=== PATIENT | male | born 1950 ===

== ENCOUNTER 2020-12-08 08:05 | Emergency (ER) | payer MEDICARE, SELFPAY ==
[2020-12-08 08:09] VITALS: BP 164/85; PULSE 64; RESP 16; TEMP 36.6; O2SAT 98; BMI 24.3
--- NOTE | 2020-12-08 08:36 | ED.EXTPRO ---
HPI - Extremity Problem General Chief complaint: Extremity Injury, Upper Stated complaint: elbow swelling Time Seen by Provider: 12/08/20 08:19 Source: patient Mode of arrival: ambulatory History of Present Illness HPI Narrative: 70-year-old male with a past medical history of hypertension presenting to the ED complaining of left elbow swelling times years. Reports area becoming increasingly painful recently, denies known injury/trauma or falls. Denies fever, chills, decreased ROM, numbness, tingling MD Complaint: extremity pain and extremity swelling Related Data Previous Rx's Medication Instructions Recorded acetaminophen [Tylenol Extra 500 mg PO Q6H PRN #20 tab 12/08/20 Strength] naproxen 500 mg PO BID PRN 10 Days #20 tab 12/08/20 Allergies Allergy/AdvReac Type Severity Reaction Status Date / Time No Known Allergies Allergy Mild NOT Unverified 04/30/20 17:21 APPLICABLE doxycycline Allergy Unknown nausea Verified 10/12/15 00:00 Review of Systems Review of Systems: Constitutional: No Fever, No Chills Musculoskeletal: + joint pain, No Myalgias, + Joint Swelling Neuro: No Weakness, No Numbness, No Paresthesias Yes all other systems are reviewed and are negative [facility] Past Medical History Attestation statement: The following information was validated with the patient. Medical History (Updated 12/08/20 @ 08:36 by JAYLON Sarabia) HTN (hypertension) Social History Social History Advance Directives: No Advance Directives Information Provided: No Physical Exam Vital Signs: Vital Signs: Last Vital Signs Temp 97.8 F 12/08/20 08:09 Pulse 64 12/08/20 08:09 Resp 16 12/08/20 08:09 BP 164/85 H 12/08/20 08:09 Pulse Ox 98 12/08/20 08:09 Body Mass Index 24.3 Const: General: cooperative and healthy appearing Orientation/consciousness: patient oriented x3 Limitations: no limitations HENMT: Head: Yes normal to inspection Ears: hearing grossly normal bilaterally General nose exam: Normal external nose present Face and sinus: Yes normal facial exam Eyes: General: appearance normal, both eyes and all related structures EOM: EOMs intact bilaterally Neck: Neck: Yes normal visual inspection Resp: Effort & Inspection: normal respiratory effort Cardio: Rhythm: regular rhythm Peripheral pulses: radial pulses present Skin: Rashes: no rashes Wounds: no wounds Neuro: General: patient oriented x3 Gait exam (Neuro): Normal gait present Extrem: Other: Left elbow with notable bursitis, no overlying erythema/cellulitis/abrasions or ecchymosis. Neurovascularly intact distally. FROM MDM - Extremity (Nontraumatic) MDM Narrative Medical decision making narrative: On exam VSS, NAD/well-appearing, exam consistent with non infected bursitis Discharge Plan Discharge Clinical Impression: Bursitis of elbow Qualifiers: Elbow bursitis location: olecranon bursitis Laterality: left Qualified Code(s): M70.22 - Olecranon bursitis, left elbow Patient Disposition: Home, Self-Care Instructions: Elbow Bursitis (ED) Additional Instructions: You have elbow bursitis, wear Christian wrap at home for elbow protection/debility/compression, you may take off to shower/sleep Naproxen as an anti-inflammatory/pain medication, take with food In addition take Tylenol If her elbow begins look infected, is red, there is pus drainage return to the ED immediately You need to follow-up with an orthopedic doctor, they may drain the fluid from her elbow Prescriptions: New naproxen 500 mg tablet 500 mg PO BID PRN (Reason: pain) 10 Days Qty: 20 RF: 0 acetaminophen [Tylenol Extra Strength] 500 mg tablet 500 mg PO Q6H PRN (Reason: pain or fever) Qty: 20 RF: 0 Referrals: Chata Mcnamara PA-C [Physician Studio Engineer] - 3 days
== END 2020-12-08 08:51 | disposition home or self-care (01) ==
PROVIDERS: Emergency Provider Emergency Medicine; PCP Nurse Practitioner Family
DX: M70.22 Olecranon bursitis, left elbow (principal); I10 Essential (primary) hypertension
CPT/HCPCS: 99283

== ENCOUNTER → 2021-06-01 08:44 | Outpatient (REF) | payer MEDICARE, SELFPAY ==
--- NOTE | ~2021-06-01 | NM_ITS ---
Exercise Myocardial perfusion study Indication: Chest pain to evaluate for myocardial ischemia Technique: The patient was brought in for an exercise perfusion study on 06/01/2021. Patient performed exercise as per Yair protocol and was injected 25 mCi of sestamibi was given intravenously one target HR was achieved. Images were obtained using the SPECT gamma camera interlaced with the gating device. Images were obtained in supine position. Resting perfusion study was performed on 06/02/2021. Patient was administered 25 mCi of sestamibi intravenously at rest. Images were then obtained in supine position. Images obtained with and without CT attenuation. Total DLP 84 mGy-cm. Images were processed with the software and compared side to side in short axis, horizontal long axis and vertical long axis views. Findings: The stress perfusion study showed nonattenuated images show mildly reduced uptake in the basal and mid inferior wall of the LV myocardium. Remainder of the LV myocardium is normally perfused attenuation corrected images show mildly reduced uptake in the apex of the LV myocardium. The gated study shows reduced LV systolic function with calculated LVEF of 47%. LV cavity is mildly to moderately dilated in size. The gated study shows diffusely reduced wall thickening and contraction of all segments. There is no transient ischemic dilation. Resting study shows no change in perfusion pattern on nonattenuated study. Attenuation corrected images show mildly reduced uptake in the distal anterior and moderately reduced uptake in the apex of the LV myocardium. Gating at rest reveals diffuse hypokinesis wall motion with ejection fraction at 37%. The findings are consistent with no clear reversible defect suggestive of ischemia. NM/NM chava perf SPECT rest & str Impression: 1. Likely normal myocardial perfusion 2. Gated LVEF is 47% with stress and 37%], correlate with echocardiogram 3. Transient ischemic dilatation not present but LV cavity is dilated Stress EKG is nondiagnostic for ischemia
--- NOTE | 2021-06-01 08:51 | CA_ITS ---
Acquisition Time: 2021-06-01 08:50:59 Total Exercise Time: 00:08:05 Test Indications: Dyspnea Medications: OMEPRAZOLE HCTZ ENTRESTO CARVEDILOL ATORVASTATIN GABAPENTIN Protocol: TAHIRA Max HR: 131 BPM 88% of Pred: 148 BPM Max BP: 178/078 mmHG Max Work Load: 10.1 METS Exercise stress test with exercise 8 min 5 sec of Tahira protocol, without anginal symptoms, with isolated PVCs and sinus arrythmia in recovery, with normotensive response to exercise, without EKG changes meeting criteria for ischemia, there were ST/ T wave abn leads III, aVF, V4-V6 at baseline with ongoing ST abn V5-V6 at peak exercise, nonspecific. Test reviewed with Dr Mcpherson. Referred By: Randy Valencia Overread By: LONI BELL
== END ==
LOC: HO.CARD 08:44
PROVIDERS: PCP Nurse Practitioner Family; Visit Provider Internal Medicine Cardiovascular Disease
DX: R07.9 Chest pain, unspecified (principal)
CPT/HCPCS: 78452; 93017; A9500

== ENCOUNTER 2022-12-26 09:47 | Emergency (ER) | payer MEDICARE, SELFPAY ==
--- NOTE | ~2022-12-26 | XR_ITS ---
EXAMINATION: XR CHEST CLINICAL INFORMATION: Chest pain. COMPARISON: September 05, 2011. TECHNIQUE: 2 views of the chest were obtained. XR/XR chest 2V FINDINGS/IMPRESSION: There is no acute radiographic finding. No focal infiltrate, effusion, or pneumothorax is seen. The heart appears normal in size. The aorta is uncoiled, suggesting hypertension.
[2022-12-26 09:49] VITALS: BP 170/73; PULSE 65; RESP 18; TEMP 36.6; O2SAT 97; BMI 28.1
--- NOTE | 2022-12-26 09:52 | ECG_ITS ---
Test Reason : chest pain Blood Pressure : / mmHG Vent. Rate : 059 BPM Atrial Rate : 059 BPM P-R Int : 204 ms QRS Dur : 128 ms QT Int : 420 ms P-R-T Axes : 046 -42 033 degrees QTc Int : 415 ms Sinus bradycardia Left axis deviation Left ventricular hypertrophy with QRS widening ( R in aVL , Paul product ) Abnormal ECG When compared with ECG of 24-JUL-2012 13:32, Vent. rate has decreased BY 29 BPM QRS duration has increased Referred By: Generic ED Physician Electronically Signed By:Jay Low
--- NOTE | 2022-12-26 10:09 | MHC.EDTECH ---
Labs collected and sent
[2022-12-26 10:22] LABS: MANUAL DIFF FLAG NO
[2022-12-26 10:24] LABS: Basophils Percent Auto 0.7 % (0-2); Eosinophils Absolute Auto 0.3 X10*3/uL (0.0-0.4); Eosinophils Percent Auto 5.4 % (0-4); Hematocrit 38.9 % (42.0-52.0); Hemoglobin 13.3 g/dl (14.0-18.0); Imm Gran Abs Auto 0.02 X10*3/uL (0.00-0.03); Imm Gran Pct Auto 0.3 % (0.0-0.4); Lymphocytes Absolute Auto 1.8 X10*3/uL (1.2-4.9); Lymphocytes Percent Auto 29.2 % (20-40); Mean Corpuscular HGB Conc 34.2 g/dl (31.0-36.0); Mean Corpuscular Hemoglobin 28.7 pg (27.0-33.0); Mean Corpuscular Volume 83.8 fL (80.0-98.0); Mean Platelet Volume 9.9 fL (9.4-12.4); Monocytes Absolute Auto 0.5 X10*3/uL (0.1-1.2); Monocytes Percent Auto 7.7 % (2-11); Neutrophils Absolute Auto 3.5 x10*3/uL (2.0-8.3); Neutrophils Percent Auto 56.7 % (45-73); Platelet Count 338 X10*3/uL (160-400); Red Blood Count 4.64 X10*6/uL (4.60-5.80); White Blood Count 6.1 X10*3/uL (4.8-10.8)
[2022-12-26 10:35] LABS: Anion Gap 14 (12-20); Blood Urea Nitrogen 15 mg/dL (9-16); Calcium 8.9 mg/dL (8.4-10.2); Carbon Dioxide 23 mmol/L (22-29); Chloride 109 mmol/L (96-108); Estimated Glomerular Filt Rate > 60; Glucose Random 137 mg/dL (60-115); Potassium 3.4 mmol/L (3.3-5.1); Sodium 143 mmol/L (135-145)
[2022-12-26 10:43] LABS: Troponin-I High Sensitivity 22.2 ng/L (<3.5-35.0)
--- NOTE | 2022-12-26 11:25 | ED_ITS ---
HPI - Chest Pain General Chief Complaint: Chest Pain Stated Complaint: Chest pain Time Seen by Provider: 12/26/22 11:01 Source: patient and family () Mode of arrival: ambulatory History of Present Illness HPI narrative: This is a 72-year-old male who had stents placed last month, followed up his central supply worker last week and was admitted on or Monday at [facility] and worked up completely without evidence of cardiac involvement but patient states that he has had significant pain starts in the upper abdomen and radiates up into his chest but does not let him sleep, he describes it as burning in nature not associated with diaphoresis, shortness of breath, palpitations, fevers, chills. Patient states that he currently takes 20 mg of omeprazole daily, he states he has been taking his aspirin on an empty stomach and has not used any additional antacid medications. Related Data Previous Rx's Medication Instructions Recorded acetaminophen 500 mg tablet 500 mg PO Q6H PRN pain or fever 12/08/20 (Tylenol Extra Strength) #20 tabs naproxen 500 mg tablet 500 mg PO BID PRN pain 10 days #20 12/08/20 tabs Allergies Allergy/AdvReac Type Severity Reaction Status Date / Time doxycycline AdvReac Intermediate nausea Verified 12/26/22 09:49 Review of Systems Review of Systems: Pertinent positives and negatives as stated in HPI PMFSH Past Medical History Source: nursing notes reviewed Medical History HTN (hypertension) Social History Social History Alcohol intake: never Smoked in Last 30 Days: No Use of substances other than those prescribed or required for medical reasons: No Advance Directives: No Advance Directives Information Provided: Yes Physical Exam Vital Signs: Vital Signs: Last Vital Signs Temp 97.8 F 12/26/22 09:49 Pulse 48 L 12/26/22 12:25 Resp 16 12/26/22 11:27 BP 160/83 H 12/26/22 12:25 Pulse Ox 98 12/26/22 12:25 O2 Del Method Room Air 12/26/22 12:25 BMI result Body Mass Index 28.1 VITAL SIGNS: Reviewed. GENERAL: Well developed, well nourished, in no acute distress. HEAD: Normocephalic/atraumatic EYES: PERRLA, EOMI EARS: Ext canals without abnormality NOSE: Nares patent bilateral OROPHARYNX: no oral lesions noted, posterior pharynx clear NECK: Supple, no adenopathy LUNGS: Normal breath sounds. No adventitious sounds or accessory muscle use. SpO2<97> CARDIOVASCULAR: Regular rate and rhythm without noted murmurs, no JVD or lower extremity edema. ABDOMEN: Soft, non-tender Clark's negative,, non-distended with bowel sounds. MUSCULOSKELETAL: No tenderness, deformities, or effusions noted on gross inspection. EXTREMITIES: No cyanosis, clubbing or edema. SKIN: Inspection of the skin reveals no rashes NEUROLOGIC: Alert and oriented x 4. Strength and sensation to light touch were grossly intact x 4. Medications Administered Discontinued Medications Generic Name Dose Route Start Last Admin Trade Name Freq PRN Reason Stop Dose Admin Al Hydroxide/Mg Hydroxide 30 ml 12/26/22 11:25 12/26/22 11:48 Magnesium Hydrox/Alum Hydrox 30 Ml Oral.Susp PO 12/26/22 11:26 30 ml ONCE ONE Administration Lidocaine HCl 10 ml 12/26/22 11:25 12/26/22 11:47 Lidocaine Hcl Viscous 2 % 15 Ml Solution MUCOUS MEM 12/26/22 11:26 10 ml ONCE ONE Administration Sucralfate 1 gm 12/26/22 11:25 12/26/22 11:48 Sucralfate Oral Suspension 1 Gm/10 Ml Oral.Susp PO 12/26/22 11:26 1 gm ONCE ONE Administration Medical Decision Making Medical Decision Making MDM Narrative: 72-year-old male who appears well and history and clinical presentation most consistent with likely gastritis/acid reflux likely a combination of diet and inappropriate use of his medications, specifically taking aspirin on an empty stomach. Review of investigations is negative for acute findings, BNP was noted to be mildly elevated but patient has no complaints of shortness of breath and will recommend that he follow-up with his central supply worker. I reviewed all investigations my interpretation remains that this patient is experiencing symptoms related to medications that he is on. He was noted to be bradycardic with a very stable blood pressure and otherwise asymptomatic. Patient received it GI cocktail and on re-evaluation feels much better. Patient understands that his omeprazole will be upped to twice a day and the recommendation is for [id number] Mylanta prior to each meal and to stop taking the aspirin on an empty stomach. Although I do note that the high sensitivity troponin was 22.2, patient recently went through entire cardiac workup at [facility] on Monday. They workup was completely negative. This included a stress test. Differential Diagnosis Please see the discussion above Lab Data Please see the discussion above 12/26/22 10:07 12/26/22 10:07 Labs: Lab Results 12/26/22 12/26/22 12/26/22 Range/Units 10:07 10:07 10:07 WBC 6.1 (4.8-10.8) X10*3/uL RBC 4.64 (4.60-5.80) X10*6/uL Hgb 13.3 L (14.0-18.0) g/dl Hct 38.9 L (42.0-52.0) % MCV 83.8 (80.0-98.0) fL MCH 28.7 (27.0-33.0) pg MCHC 34.2 (31.0-36.0) g/dl RDW 13.0 (11.0-16.0) % Plt Count 338 (160-400) X10*3/uL MPV 9.9 (9.4-12.4) fL Immature Gran % (Auto) 0.3 (0.0-0.4) % Neut % (Auto) 56.7 (45-73) % Lymph % (Auto) 29.2 (20-40) % Canyon % (Auto) 7.7 (2-11) % Eos % (Auto) 5.4 H (0-4) % Baso % (Auto) 0.7 (0-2) % Lymph # (Auto) 1.8 (1.2-4.9) X10*3/uL Canyon # (Auto) 0.5 (0.1-1.2) X10*3/uL Eos # (Auto) 0.3 (0.0-0.4) X10*3/uL Baso # (Auto) 0.0 (0.0-0.2) X10*3/uL Abs Immat Gran (auto) 0.02 (0.00-0.03) X10*3/uL Absolute Neuts (auto) 3.5 (2.0-8.3) x10*3/uL Absolute Nucleated RBC 0.000 (0.0-0.012) X10*3/uL Nucleated RBC % (auto) 0.0 (0.0-0.2) /100WBC Sodium 143 (135-145) mmol/L Potassium 3.4 (3.3-5.1) mmol/L Chloride 109 H (96-108) mmol/L Carbon Dioxide 23 (22-29) mmol/L Anion Gap 14 (12-20) BUN 15 (9-16) mg/dL Creatinine 0.97 (0.5-1.4) mg/dL Estim Creat Clear Calc 66.0 Estimated GFR > 60 Random Glucose 137 H (60-115) mg/dL Calcium 8.9 (8.4-10.2) mg/dL Troponin I High Sens 22.2 (<3.5-35.0) ng/L B-Natriuretic Peptide (<100) pg/mL 12/26/22 Range/Units 10:07 WBC (4.8-10.8) X10*3/uL RBC (4.60-5.80) X10*6/uL Hgb (14.0-18.0) g/dl Hct (42.0-52.0) % MCV (80.0-98.0) fL MCH (27.0-33.0) pg MCHC (31.0-36.0) g/dl RDW (11.0-16.0) % Plt Count (160-400) X10*3/uL MPV (9.4-12.4) fL Immature Gran % (Auto) (0.0-0.4) % Neut % (Auto) (45-73) % Lymph % (Auto) (20-40) % Canyon % (Auto) (2-11) % Eos % (Auto) (0-4) % Baso % (Auto) (0-2) % Lymph # (Auto) (1.2-4.9) X10*3/uL Canyon # (Auto) (0.1-1.2) X10*3/uL Eos # (Auto) (0.0-0.4) X10*3/uL Baso # (Auto) (0.0-0.2) X10*3/uL Abs Immat Gran (auto) (0.00-0.03) X10*3/uL Absolute Neuts (auto) (2.0-8.3) x10*3/uL Absolute Nucleated RBC (0.0-0.012) X10*3/uL Nucleated RBC % (auto) (0.0-0.2) /100WBC Sodium (135-145) mmol/L Potassium (3.3-5.1) mmol/L Chloride (96-108) mmol/L Carbon Dioxide (22-29) mmol/L Anion Gap (12-20) BUN (9-16) mg/dL Creatinine (0.5-1.4) mg/dL Estim Creat Clear Calc Estimated GFR Random Glucose (60-115) mg/dL Calcium (8.4-10.2) mg/dL Troponin I High Sens (<3.5-35.0) ng/L B-Natriuretic Peptide 175 H (<100) pg/mL Independent Interpretation I performed an independent interpretation of an: EKG Interpretation: Sinus bradycardia, HR -59, LA/QTC are within normal limits. QRS-128. Radiology Impression Radiologist Impression: My interpretation is in agreement with radiology's impression. Discharge Plan Discharge Clinical Impression: Atypical chest pain, GERD (gastroesophageal reflux disease) Patient Disposition: Home, Self-Care Instructions: Chest Pain (ED), Diet for Stomach Ulcers and Gastritis (ED), Gastroesophageal Reflux Disease (ED) Additional Instructions: 1. Resume all home medications as prescribed. 2. Stop taking aspirin on an empty stomach. 3. Start taking your omeprazole, twice a day, and follow-up with your primary care provider. 4. Start taking Mylanta just prior to your meals. 5. Do not lie flat while sleeping. 6. Follow-up with your central supply worker as well as keeping your Gastroenterology appointment. Return to the ER for any worsening symptoms. Prescriptions: No Action naproxen 500 mg tablet 500 mg PO BID PRN (Reason: pain) 10 Days Qty: 20 0RF acetaminophen [Tylenol Extra Strength] 500 mg tablet 500 mg PO Q6H PRN (Reason: pain or fever) Qty: 20 0RF
[2022-12-26 11:27] VITALS: BP 159/69; PULSE 54; RESP 16; O2SAT 97
--- NOTE | 2022-12-26 11:33 | PC.NURSE ---
Pt on stretcher, airway open and patent, no obvious signs of distress, no difficulty/labored breathing, equal chest rise and fall. Pt a&ox4. Skin color normal for ethnicity, warm, and dry. Lung sounds clr and equal bilaterally all bhatt. Heart sounds normal. Bowel sounds present all bhatt. Abdomen soft, non-tender upon palpation. No edema noted. Pt reporting chest pain as well as throat pain rated 4/10 that he has had since his heart surgery on November 24, where two stents were placed. Pt describes pain in throat as like an acid.
[2022-12-26 11:42] LABS: B Type Natriuretic Peptide 175 pg/mL (<100)
[2022-12-26] MEDS: Lidocaine HCl Viscous 2 % 15 ML SOLUTION 10 ML MUCOUS MEM (11:47)
[2022-12-26] MEDS: Magnesium Hydrox/Alum Hydrox 30 ML ORAL.SUSP PO (11:48)
[2022-12-26] MEDS: Sucralfate Oral Suspension 1 GM/10 ML ORAL.SUSP PO (11:48)
[2022-12-26 12:25] VITALS: BP 160/83; PULSE 48; O2SAT 98
--- NOTE | 2022-12-26 12:27 | PC.NURSE ---
pt alert and oriented, skin appropriate for ethnicity, noticed that on cariac monitor hr dropped to the 30's, pt reports left upper abd pain at 3/10 as feeling full/pressure denies feeling lightheaded and dizzy at this time, renato on the monitor
[2022-12-26 14:59] VITALS: BP 166/76; PULSE 53; RESP 18; O2SAT 97
== END 2022-12-26 15:27 | disposition home or self-care (01) ==
PROVIDERS: Emergency Provider Student in an Organized Health Care Education/Training Program
DX: R07.89 Other chest pain (principal); K21.9 Gastro-esophageal reflux disease without esophagitis; R06.02 Shortness of breath; Z79.899 Other long term (current) drug therapy
CPT/HCPCS: 36415; 71046; 80048; 83880; 84484; 85025; 93005; 99283; 99285